=== PATIENT | female | born 2000 | race Caucasian/White ===

== ENCOUNTER 2023-04-22 12:18 | Emergency (ER) | payer OTHER ==
[2023-04-22 12:24] VITALS: BP 110/58; PULSE 72; RESP 18; TEMP 98; BMI 34.8
== END 2023-04-22 13:31 | disposition home or self-care (01) ==
LOC: JER 12:18 → JERFT 12:18
DX: S02.5XXA Fracture of tooth (traumatic), initial encounter for closed fracture (principal); K04.7 Periapical abscess without sinus; K08.89 Other specified disorders of teeth and supporting structures; X58.XXXA Exposure to other specified factors, initial encounter; Y93.9 Activity, unspecified; Y92.9 Unspecified place or not applicable
CPT/HCPCS: 84703; 99283-25